=== PATIENT | female | born 1950 | race Caucasian/White ===

== ENCOUNTER 2023-03-20 09:35 | Outpatient (CLI) | payer MEDICARE, SELFPAY ==
[2023-03-20 19:04] LABS: Vitamin D 25 Hydroxy 38.4 ng/mL
[2023-03-20 19:33] LABS: Basophils Percent Auto 0.5 % (0.2-1.2); Eosinophils Percent Auto 0.3 % (0-4.4); Hemoglobin 14.3 g/dL (12.0-15.0); Immature Granulocyte Absolute 0.02 K/mm3 (0.00-0.031); Immature Granulocyte Percent A 0.3 % (0-0.5); Lymphocytes Absolute Auto 1.05 K/mm3 (0.9-3.2); Lymphocytes Percent Auto 16.7 % (18.3-44.2); Mean Corpuscular HGB Conc 31.8 g/dl (32-36); Mean Corpuscular Hemoglobin 32.2 pg (26-34); Mean Corpuscular Volume 101.4 fl (80-100); Mean Platelet Volume 11.6 fl (7.4-10.4); Monocytes Absolute Auto 0.5 K/mm3 (0.1-0.6); Neutrophils Absolute Auto 4.7 K/mm3 (1.3-6.7); Neutrophils Percent Auto 74.2 % (45.5-73.1); Platelet Count Result 192 k/mm3 (150-375); Red Blood Count 4.44 M/mm3 (4.2-5.4); Red Cell Distribution Width 12.7 % (11.5-14.5); White Blood Count 6.3 K/mm3 (4.5-10.0)
[2023-03-20 19:35] LABS: Alanine Aminotransferase 21 U/L (6-35); Albumin Level 4.6 g/dL (3.5-5.1); Alkaline Phosphatase 92 U/L (38-126); Anion Gap 7 mmol/L (8-16); Aspartate Amino Transferase 34 U/L (14-36); Bilirubin,Total 0.5 mg/dL (0.2-1.3); Blood Urea Nitrogen 15 mg/dL (7-17); Calcium 9.4 mg/dL (8.4-10.2); Carbon Dioxide 27 mmol/L (22-30); Chloride 106 mmol/L (98-107); Estimated Glomerular Filt Rate > 60; Glucose 135 mg/dL (65-110); Potassium 4.8 mmol/L (3.4-5.0); Sodium 140 mmol/L (137-145)
== END 2023-03-20 09:36 | disposition home or self-care (01) ==
LOC: ANHGOSHLAB 09:37
PROVIDERS: PCP Internal Medicine; Visit Provider Clinical Nurse Specialist
DX: Z13.228 Encounter for screening for other metabolic disorders (principal); E55.9 Vitamin D deficiency, unspecified
CPT/HCPCS: 36415; 80053; 82306; 85025

== ENCOUNTER 2023-04-01 09:45 | Outpatient (CLI) | payer MEDICARE, SELFPAY ==
[2023-04-01 14:09] LABS: Cholesterol 270 mg/dL (0-200); HDL Direct 78 mg/dL; Triglycerides 104 mg/dL (<150)
[2023-04-01 14:20] LABS: LDL Cholesterol Direct 136 mg/dL
[2023-04-01 14:42] LABS: Hemoglobin A1C 5.4 % (<5.7)
== END 2023-04-01 09:46 | disposition home or self-care (01) ==
LOC: ANHGOSHLAB 09:46
PROVIDERS: PCP Internal Medicine; Visit Provider Clinical Nurse Specialist
DX: R73.9 Hyperglycemia, unspecified (principal); E78.5 Hyperlipidemia, unspecified
CPT/HCPCS: 36415; 80061; 83036

== ENCOUNTER 2024-03-18 08:24 | Outpatient (CLI) | payer MEDICARE, SELFPAY ==
[2024-03-18 12:45] LABS: Basophils Percent Auto 0.7 % (0.2-1.2); Eosinophils Absolute Auto 0.1 K/mm3 (0-0.3); Eosinophils Percent Auto 1.8 % (0-4.4); Hematocrit 44.4 % (37.0-47.0); Hemoglobin 14.1 g/dL (12.0-15.0); Immature Granulocyte Absolute 0.02 K/mm3 (0.00-0.031); Immature Granulocyte Percent A 0.3 % (0-0.5); Lymphocytes Absolute Auto 1.24 K/mm3 (0.9-3.2); Lymphocytes Percent Auto 20.6 % (18.3-44.2); Mean Corpuscular HGB Conc 31.8 g/dl (32-36); Mean Corpuscular Hemoglobin 32.5 pg (26-34); Mean Corpuscular Volume 102.3 fl (80-100); Mean Platelet Volume 11.4 fl (7.4-10.4); Monocytes Absolute Auto 0.5 K/mm3 (0.1-0.6); Monocytes Percent Auto 7.6 % (2.6-8.5); Neutrophils Absolute Auto 4.2 K/mm3 (1.3-6.7); Platelet Count Result 195 k/mm3 (150-375); Red Blood Count 4.34 M/mm3 (4.2-5.4); Red Cell Distribution Width 13.2 % (11.5-14.5)
[2024-03-18 13:04] LABS: Hemoglobin A1C 5.2 % (<5.7)
[2024-03-18 14:18] LABS: Alanine Aminotransferase 19 U/L (6-35); Albumin Level 4.5 g/dL (3.5-5.1); Alkaline Phosphatase 96 U/L (38-126); Anion Gap 6 mmol/L (4-12); Aspartate Amino Transferase 38 U/L (14-36); Bilirubin,Total 0.5 mg/dL (0.2-1.3); Blood Urea Nitrogen 19 mg/dL (7-17); Calcium 9.8 mg/dL (8.4-10.2); Carbon Dioxide 27 mmol/L (22-30); Chloride 107 mmol/L (98-107); Cholesterol 291 mg/dL (0-200); Estimated Glomerular Filt Rate > 60; Glucose 103 mg/dL (65-110); HDL Direct 96 mg/dL; Potassium 4.8 mmol/L (3.4-5.0); Sodium 140 mmol/L (137-145); Triglycerides 89 mg/dL (<150)
[2024-03-18 14:29] LABS: LDL Cholesterol Direct 149 mg/dL
[2024-03-18 22:09] LABS: Vitamin D 25 Hydroxy 24.3 ng/mL
== END 2024-03-18 08:25 | disposition home or self-care (01) ==
LOC: ANHGOSHLAB 08:25
PROVIDERS: PCP Internal Medicine; Visit Provider Clinical Nurse Specialist
DX: E55.9 Vitamin D deficiency, unspecified (principal); R73.9 Hyperglycemia, unspecified; Z13.228 Encounter for screening for other metabolic disorders; Z13.220 Encounter for screening for lipoid disorders; E78.2 Mixed hyperlipidemia
CPT/HCPCS: 36415; 80053; 80061; 82306; 83036; 85025

== ENCOUNTER 2025-05-18 08:23 | Outpatient (CLI) | payer MEDICARE, SELFPAY ==
[2025-05-18 19:00] LABS: Basophils Percent Auto 0.7 % (0.2-1.2); Eosinophils Absolute Auto 0.1 K/mm3 (0-0.3); Eosinophils Percent Auto 1.9 % (0-4.4); Hematocrit 43.7 % (37.0-47.0); Immature Granulocyte Absolute 0.02 K/mm3 (0.00-0.031); Immature Granulocyte Percent A 0.3 % (0-0.5); Lymphocytes Absolute Auto 1.08 K/mm3 (0.9-3.2); Lymphocytes Percent Auto 18.7 % (18.3-44.2); Mean Corpuscular Hemoglobin 32.9 pg (26-34); Mean Corpuscular Volume 102.6 fl (80-100); Mean Platelet Volume 11.5 fl (7.4-10.4); Monocytes Absolute Auto 0.5 K/mm3 (0.1-0.6); Monocytes Percent Auto 8.3 % (2.6-8.5); Neutrophils Absolute Auto 4.1 K/mm3 (1.3-6.7); Neutrophils Percent Auto 70.1 % (45.5-73.1); Platelet Count Result 188 k/mm3 (150-375); Red Blood Count 4.26 M/mm3 (4.2-5.4); White Blood Count 5.8 K/mm3 (4.5-10.0)
[2025-05-18 19:39] LABS: Alanine Aminotransferase 18 U/L (6-35); Albumin Level 4.2 g/dL (3.5-5.1); Alkaline Phosphatase 70 U/L (38-126); Anion Gap 7 mmol/L (4-12); Aspartate Amino Transferase 31 U/L (14-36); Bilirubin,Total 0.3 mg/dL (0.2-1.3); Blood Urea Nitrogen 21 mg/dL (7-17); Calcium 9.7 mg/dL (8.4-10.2); Carbon Dioxide 27 mmol/L (22-30); Chloride 107 mmol/L (98-107); Cholesterol 284 mg/dL (0-200); Estimated Glomerular Filt Rate > 60; Glucose 113 mg/dL (65-110); HDL Direct 80 mg/dL; Potassium 4.5 mmol/L (3.4-5.0); Sodium 141 mmol/L (137-145); Total Protein 7.2 g/dL (6.3-8.2); Triglycerides 74 mg/dL (<150)
[2025-05-18 19:50] LABS: LDL Cholesterol Direct 138 mg/dL
[2025-05-19 09:09] LABS: Hemoglobin A1C 5.4 % (<5.7)
== END 2025-05-18 08:24 | disposition home or self-care (01) ==
LOC: ANHGOSHLAB 08:24
PROVIDERS: PCP Internal Medicine; Visit Provider Clinical Nurse Specialist
DX: Z13.228 Encounter for screening for other metabolic disorders (principal); E78.2 Mixed hyperlipidemia; R73.01 Impaired fasting glucose
CPT/HCPCS: 36415; 80053; 80061; 83036; 85025